=== PATIENT | male | born 1960 | race Caucasian/White ===

== ENCOUNTER 2017-11-20 09:29 | Day surgery (SDC) | payer BC ==
[~2017-11-20] VITALS: Ht 172.7 cm; Wt 134.7 kg
[~2017-11-20 09:29] MED LIST: TRAMADOL HCL50 MG PO
[2017-11-20] MEDS ORDERED: LISINOPRIL20 MG (09:56)
[2017-11-20] MEDS ORDERED: LIPITOR10 MG PO (09:57)
[2017-11-20] MEDS ORDERED: CITALOPRAM HBR10 MG PO (09:57)
[2017-11-20] MEDS ORDERED: ESCITALOPRAM OXA5 MG PO (10:00)
[2017-11-20] MEDS ORDERED: ESCITALOPRAM OX10 MG PO (10:00)
[2017-11-20] MEDS ORDERED: METFORMIN HCL500 M2 PO (10:01)
--- NOTE | 2017-11-20 11:23 | NUR ---
11/20/17 1123 Valerie Garza 1115 PT ARRIVED TO PACU DROWSY AND TALKING. PT REORIENTED TO PACU, RESP EVEN AND UNLABORED ON 2L VIA NC. ABD DISTENDED AND PT ENCOURAGED TO PASS GAS/AIR.
--- NOTE | 2017-11-21 09:34 | OR ---
[facility] [address], [place] [address] Signed DATE OF OPERATION: 11/20/2017 SURGEON: Drea Linares MD PREOPERATIVE DIAGNOSIS: Colon screening. POSTOPERATIVE DIAGNOSES: 1. Polyps x3. 2. Diverticulosis of colon. PROCEDURE PERFORMED: Total colonoscopy to the cecum with cold morcellation polypectomy x3. ANESTHESIA: Intravenous sedation with fentanyl 100 mcg and Versed 5 mg. INDICATIONS FOR PROCEDURE: This 57-year-old white man is a patient of Dr. Ackerman and known to me from the past having undergone colonoscopy in 2002. He is here for surveillance colonoscopy (screening colonoscopy and is symptom-free). He understands the risks of bleeding, infection, and perforation related to colonoscopy and wished to proceed. The patient is anticipating a bariatric surgery at [facility] and colonoscopy has been recommended as a preamble to that operation. FINDINGS: The prep was excellent. Complete colonoscopy was undertaken to the cecum. There were three small polyps, all were excised with cold morcellation technique. Diverticular changes were noted at the left colon, but no sign of stricture or other abnormality. DESCRIPTION OF PROCEDURE: The patient was brought to the endoscopy suite and placed in lateral decubitus position, given intravenous sedation to the point of slurred speech and nystagmus. Digital rectal examination was normal. An Olympus video colonoscope was passed in the rectum and manipulated throughout the colon noting diverticular changes of the sigmoid. The scope was advanced ultimately to the cecum. The ileocecal valve and appendiceal orifice were normal. The scope was withdrawn, in the mid ascending colon, there was a small polyp about 5 mm in size, which Electronically Signed By: DREA LINARES MD 11/21/17 0934 PATIENT NAME: NEHA LARA OPERATIVE REPORT DATE OF : 62 REPORT #: [id number] PHYSICIAN: DREA LINARES MD PCP: GEORGE MELCHOR DO REPORT IS CONFIDENTIAL AND NOT TO BE RELEASED WITHOUT AUTHORIZATION [facility] [address] [place], [place] [address] Signed was excised with cold morcellation technique completely. Further withdrawal of the scope was undertaken and in the proximal descending colon about 90 cm two small polyps were noted, these two were excised with cold morcellation technique. Further withdrawal of scope through the left colon and sigmoid demonstrated diverticulosis. Retroflexed view of the rectum was normal. Scope was removed and the patient was taken to recovery room in good condition. CONCLUDING DIAGNOSES: Polyps x3 and diverticulosis. PLAN: Recommend repeat colonoscopy in 5 years or sooner if clinically indicated. Recommend high-fiber diet. He will return to the ongoing care of Dr. Ackerman. MD REYNA Ochoa/KYREEL /[id number] cc: Gopal Ackerman MD Copies: GOPAL ACKERMAN MD ~ Electronically Signed By: DREA LINARES MD 11/21/17 0934 PATIENT NAME: NEHA LARA OPERATIVE REPORT DATE OF : 62 REPORT #: [id number] PHYSICIAN: DREA LINARES MD PCP: GEORGE MELCHOR DO REPORT IS CONFIDENTIAL AND NOT TO BE RELEASED WITHOUT AUTHORIZATION
== END 2017-11-20 11:51 | disposition home or self-care (01) ==
LOC: OPS 09:29 → DS 09:29 → OPS 11:00
PROVIDERS: Surgery
PROC: 0DBN8ZZ Excision of Sigmoid Colon, Via Natural or Artificial Opening Endoscopic (ICD-10-PCS; 2017-11-20)
PROC: 0DBF8ZZ Excision of Right Large Intestine, Via Natural or Artificial Opening Endoscopic (ICD-10-PCS; principal; 2017-11-20 11:00)
DX: Z12.11 Encounter for screening for malignant neoplasm of colon (principal); D12.2 Benign neoplasm of ascending colon; D12.5 Benign neoplasm of sigmoid colon; K57.30 Diverticulosis of large intestine without perforation or abscess without bleeding; E11.9 Type 2 diabetes mellitus without complications; I10 Essential (primary) hypertension; F32.9 Major depressive disorder, single episode, unspecified; M10.9 Gout, unspecified; G47.30 Sleep apnea, unspecified; E66.01 Morbid (severe) obesity due to excess calories; Z98.890 Other specified postprocedural states; Z99.89 Dependence on other enabling machines and devices; Z68.42 Body mass index [BMI] 45.0-49.9, adult
CPT/HCPCS: 99153; G0500; J2250; J3010; J7120

== ENCOUNTER 2021-01-21 13:47 | Emergency (ER) | payer BC ==
[~2021-01-21] VITALS: Ht 172.7 cm; Wt 109.3 kg
[~2021-01-21 13:47] MED LIST changes: +CITALOPRAM HBR10 MG PO; +ESCITALOPRAM OX10 MG PO; +ESCITALOPRAM OXA5 MG PO; +LIPITOR10 MG PO; +LISINOPRIL20 MG; +METFORMIN HCL500 M2 PO
--- OUTSIDE RECORDS SUMMARY | 2021-01-21 13:50 | XMS ---
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 EMaria Teresa VISIT COUNT (12 MO.) 1 TWILA Amezcua TOTAL 1 NOTE: Visits indicate total known visits. ED/UCC VISIT TRACKING (12 MO.) 01/21/2021 13:47 TWILA Canales OR TYPE: Emergency COMPLAINT: - R HIP PAIN INPATIENT VISIT TRACKING (12 MO.) No inpatient visits to display in this time frame [email or web address]
[2021-01-21] MEDS ORDERED: ATORVASTATIN CA20 MG PO (13:58)
[2021-01-21] MEDS ORDERED: METHYLPREDNISOLO4 M1 PO (14:00)
[2021-01-21] MEDS ORDERED: PERCOCET 5-3251 EACH PO (17:55)
== END 2021-01-21 18:14 | disposition home or self-care (01) ==
LOC: ED 13:47
DX: M54.5 Low back pain (principal); I10 Essential (primary) hypertension; E66.9 Obesity, unspecified; Z88.8 Allergy status to other drugs, medicaments and biological substances; Z79.899 Other long term (current) drug therapy
CPT/HCPCS: 72100; 72131; 96374; 96375; 96376; 99284-25; J1100; J1885; J2270

== ENCOUNTER 2023-07-06 13:00 | Day surgery (SDC) | payer BC ==
[~2023-07-06] VITALS: Ht 172.7 cm; Wt 96.4 kg
[~2023-07-06 13:00] MED LIST changes: +ATORVASTATIN CA20 MG PO; +CARISOPRODOL350 MG PO; +DAILY VITE1 EAC1 PO; +DULOXETINE HCL60 MG PO; +IBLOOD GLUCOSE TEST STRIP 1 EA TEST VI PRN; +LACTATED RINGER'S 1,000 ML IV SCH; +LIDOCAINE HCL 1% 5 ML SDV INJ ONE; +METHYLPREDNISOLO4 M1 PO; +MIDAZOLAM HCL 5 MG/5 ML VIAL IV PRN; +PERCOCET 5-3251 EACH PO; +PHENTERMINE HCL15 MG PO; +TOPIRAMATE ER50 M1; +fentaNYL citrate 100 MCG/2 ML VIAL IV PRN
[2023-07-06 13:19] VITALS: BP 160/103
[2023-07-06] MEDS ORDERED: MIDAZOLAM HCL 5 MG/5 ML VIAL ONE (14:20)
[2023-07-06] MEDS ORDERED: fentaNYL citrate 100 MCG/2 ML VIAL ONE (14:21)
--- NOTE | 2023-07-06 15:52 | NUR ---
07/06/23 1552 Betsy Medrano 1545 PATIENT INTO PACU BAY 6. VITAL SIGNS COMPLETE. PATIENT DROWSY BUT ORIENTED. BREATHING EQUAL AND UNLABORED. OXYGEN SATURATIONS ABOVE 90% ON 2 LITER VIA NASAL CANNULA. NO DRAINAGE AT SURGICAL SITE. ABDOMEN SOFT. 1550 PATIENT DROWSY. BREATHING EQUAL AND UNLABORED. OXYGEN SATURATIONS ABOVE 90% ON ROOM AIR. PATIENT DENIES PAIN OR BEING NAUSEATED. IVF INFUSING. NO DRAINAGE AT SURGICAL SITE. RR 10-20.
[2023-07-06 16:11] VITALS: BP 134/109
--- NOTE | 2023-07-08 13:37 | OR ---
[facility] [address] [place], [place] [address] Signed DATE OF OPERATION: 07/06/2023 SURGEON: Drea Linares MD PREOPERATIVE DIAGNOSIS: History of colon polyps 2018. POSTOPERATIVE DIAGNOSIS: Scattered diverticula of sigmoid and left colon. PROCEDURE: Total colonoscopy to cecum. ANESTHESIA: Intravenous sedation; fentanyl 150 mcg and Versed 7 mg. INDICATION: This 62-year-old white man is a patient of Dr. Gopal Ackerman and known to me from the past having undergone colonoscopy in 2018, where he was found to have three polyps which were excised. He currently has no symptoms of bleeding, diarrhea or constipation. He is here for screening colonoscopy. Notably, he underwent gastric sleeve resection at [facility] and has lost nearly 100 pounds, now down to weight of 212. He is admitted at this time to undergo screening colonoscopy. He understands the risk of bleeding, infection, and perforation. FINDINGS: The prep was good. Complete colonoscopy was undertaken to the cecum. He had scattered diverticula in the sigmoid and left colon, but no sign of polyps or colitis. DESCRIPTION OF PROCEDURE: The patient was brought to the endoscopy suite and placed in the lateral decubitus position, given intravenous sedation to the point of slurred speech and nystagmus. Digital rectal examination was normal. An Olympus video colonoscope was passed in the rectum and manipulated throughout the colon ultimately intubating the cecum. The ileocecal valve and appendiceal orifice were normal. Scope was withdrawn and examination throughout showed no sign of abnormality, only diverticular changes of the left colon and sigmoid. Retroflexed view was normal. Scope was removed and the patient was taken to the recovery room in good condition. Electronically Signed By: DREA LINARES MD 07/08/23 1337 PATIENT NAME: NEHA LARA OPERATIVE REPORT DATE OF : 62 REPORT #: [id number] PHYSICIAN: DREA LINARES MD PCP: GOPAL ACKERMAN MD REPORT IS CONFIDENTIAL AND NOT TO BE RELEASED WITHOUT AUTHORIZATION [facility] [address] [facility] [place], [place] [address] Signed CONCLUDING DIAGNOSIS: Diverticula. No evidence of polyps. PLAN: Recommend repeat colonoscopy in 10 years, sooner if clinically indicated. He will return to the ongoing care of Dr. Ackerman. MD REYNA Ochoa/MODL /[id number] cc: Gopal Ackerman MD Copies: GOPAL ACKERMAN MD ~ Electronically Signed By: DREA LINARES MD 07/08/23 1337 PATIENT NAME: NEHA LARA OPERATIVE REPORT DATE OF : 62 REPORT #: [id number] PHYSICIAN: DREA LINARES MD PCP: GOPAL ACKERMAN MD REPORT IS CONFIDENTIAL AND NOT TO BE RELEASED WITHOUT AUTHORIZATION
== END 2023-07-06 16:18 | disposition home or self-care (01) ==
LOC: DS 13:00 → OPS 13:00 → DS 13:02 → OPS 14:00
PROVIDERS: ATTEND Surgery
PROC: 0DJD8ZZ Inspection of Lower Intestinal Tract, Via Natural or Artificial Opening Endoscopic (ICD-10-PCS; principal; 2023-07-06 14:00)
DX: Z12.11 Encounter for screening for malignant neoplasm of colon (principal); I10 Essential (primary) hypertension; Z86.010 Personal history of colon polyps; Z98.84 Bariatric surgery status
CPT/HCPCS: 99153; G0500; J2250; J3010